=== PATIENT | male | born 1990 | race African-American/Black ===

== ENCOUNTER 2017-05-14 23:39 | Emergency (ER) | payer OTHER ==
[2017-05-14 23:42] VITALS: BP 132/77; PULSE 72; TEMP 97; BMI 23.1
--- NOTE | 2017-05-15 00:43 | PDOC ---
History of Present Illness - General History Source: Patient Exam Limitations: No Limitations - History of Present Illness Initial Comments: 05/15/17 01:37 The patient is a 27 year old male, with a significant past medical history of asthma(childhood), who presents to the emergency department with back pain since yesterday. The patient reports his pain is localized to his lower back and was brought on s/p lifting something heavy that he was going to throw out. Patient reports he did not feel the pain until he was walking back to his apartment. He reports his pain is nonradiating nature and denies any numbness or tingling. Patient reports he has not taken anything for the pain. Patient reports associated shoulder pain, which he reports began 2 weeks ago. He reports he has not taken anything for the pain, but states he has been stretching, with minimal relief of pain. He denies any trauma. He denies any flank pain, dysuria, hematuria, frequency, or urgency. He denies any abdominal pain, nausea, vomiting, diarrhea, or constipation. He denies any chest pain, shortness of breath, diaphoresis, or palpitations. He denies any fever or chills. He denies any recent travel or sick contacts. Allergies: Codeine Past Surgical History: None reported Social History: Non smoker. No ETOH or recreational drug use. <Pradeep Cloud - Last Filed: 05/15/17 01:36> <Lisette Gonzalez - Last Filed: 05/15/17 03:53> - General Chief Complaint: Back Pain Stated Complaint: BACK PAIN Time Seen by Provider: 05/15/17 00:43 Past History <Pradeep Cloud - Last Filed: 05/15/17 01:36> - Past Medical History Asthma: Yes (childhood) - Suicide/Smoking/Psychosocial Hx Smoking History: Never smoked Have you smoked in the past 12 months: No Hx Alcohol Use: No Drug/Substance Use Hx: No Substance Use Type: None <Lisette Gonzalez - Last Filed: 05/15/17 03:53> - Past Medical History Allergies/Adverse Reactions: Allergies Allergy/AdvReac Type Severity Reaction Status Date / Time banana Allergy Verified 05/14/17 23:42 codeine Allergy Hives Verified 05/14/17 23:42 Home Medications: Ambulatory Orders Benzocaine [Orabase] 11.9 gm MM TID #1 paste..g. 06/22/16 Triamcinolone Acetonide [Kenalog-10] 10 mg IJ TID #100 ml 06/22/16 Ibuprofen [Motrin -] 600 mg PO TID #30 tablet 05/15/17 Methocarbamol [Robaxin -] 500 mg PO TID #30 tablet 05/15/17 Review of Systems - Review of Systems Able to Perform ROS?: Yes Comments:: 05/15/17 01:37 GENERAL/CONSTITUTIONAL: No fever or chills. No weakness. HEAD, EYES, EARS, NOSE AND THROAT: No change in vision. No ear pain or discharge. No sore throat. CARDIOVASCULAR: No chest pain or shortness of breath. RESPIRATORY: No cough, wheezing, or hemoptysis. GASTROINTESTINAL: No nausea, vomiting, diarrhea or constipation. GENITOURINARY: No dysuria, frequency, or change in urination. MUSCULOSKELETAL: Yes lower back pain, bilateral shoulder pain. No other joint or muscle swelling or pain. No neck pain. SKIN: No rash NEUROLOGIC: No headache, vertigo, loss of consciousness, or change in strength/ sensation. ENDOCRINE: No increased thirst. No abnormal weight change. HEMATOLOGIC/LYMPHATIC: No anemia, easy bleeding, or history of blood clots. ALLERGIC/IMMUNOLOGIC: No hives or skin allergy. <Pradeep Cloud - Last Filed: 05/15/17 01:36> *Physical Exam - Vital Signs Last Vital Signs Temp Pulse Resp BP Pulse Ox 97 F L 72 18 132/77 99 05/14/17 23:40 05/14/17 23:40 05/14/17 23:40 05/14/17 23:40 05/14/17 23:40 - Physical Exam Comments: 05/15/17 01:38 GENERAL: The patient is awake, alert, and fully oriented, in no acute distress. HEAD: Normal with no signs of trauma. EYES: Pupils equal, round and reactive to light, extraocular movements intact, sclera anicteric, conjunctiva clear with no pallor. ENT: Ears normal, nares patent, oropharynx clear without exudates. Moist mucous membranes. NECK: Normal range of motion, supple without lymphadenopathy, JVD, or masses. LUNGS: Breath sounds equal, clear to auscultation bilaterally. No wheeze/ crackles. HEART: Regular rate and rhythm, normal S1 and S2 without murmur or rub. ABDOMEN: Soft/nontender/nondistended. BS wnl. No guarding or rebound. No palpable masses. No hepatosplenomegaly. EXTREMITIES: Normal range of motion, no edema. No clubbing or cyanosis. No cords, erythema, or tenderness. NEUROLOGICAL: Cranial nerves II through XII grossly intact. Normal speech, normal gait. PSYCH: Normal mood, normal affect. SKIN: Warm, Dry, normal turgor, no rashes or lesions noted. <Pradeep Cloud - Last Filed: 05/15/17 01:36> - Vital Signs Last Vital Signs Temp Pulse Resp BP Pulse Ox 97 F L 72 18 132/77 99 05/14/17 23:40 05/14/17 23:40 05/14/17 23:40 05/14/17 23:40 05/14/17 23:40 <Lisette Gonzalez - Last Filed: 05/15/17 03:53> Medical Decision Making - Medical Decision Making 05/15/17 03:44 Pt comes with back spasm after lifting a heavy fire place. He has no pain running down his legs. He has no neurological deficits. All his pain is in his paraspinal low back msucles. Right worse than left. Muscle spasm is the diagnosis. Pt will go home with motrin and robaxin. He also complains of having had injured his right shoulder in the past. He has likely a sprained or partially torn rotator cuff. Pt will be referred to ortho , so that he may get an MRI in the future. <Lisette Gonzalez - Last Filed: 05/15/17 03:53> *DC/Admit/Observation/Transfer - Attestations Scribe Attestion: 05/15/17 01:38 Documentation prepared by Pradeep Cloud, acting as medical grade shoemaker for Lisette Gonzalez MD. <Pradeep Cloud - Last Filed: 05/15/17 01:36> - Discharge Dispostion Admit: No <Lisette Gonzalez - Last Filed: 05/15/17 03:53> Diagnosis at time of Disposition: Muscle spasm, Musculoskeletal pain, Rotator cuff injury - Discharge Dispostion Disposition: HOME Condition at time of disposition: Stable - Prescriptions Prescriptions: Ibuprofen [Motrin -] 600 mg PO TID #30 tablet Methocarbamol [Robaxin -] 500 mg PO TID #30 tablet - Referrals Referrals: Remi Osorio MD [Staff Physician] - - Patient Instructions Printed Discharge Instructions: DI for Back Spasm
[2017-05-15] MEDS ORDERED: METHOCARBAMOL 500 MG TABLET PO ONE (01:25)
[2017-05-15] MEDS ORDERED: KETOROLAC TROMETHAMINE 60 MG/2 ML VIAL IM ONE (01:25)
[2017-05-15] MEDS ORDERED: KETOROLAC TROMETHAMINE 60 MG/2 ML VIAL ONE (01:50)
[2017-05-15] MEDS ORDERED: METHOCARBAMOL 500 MG TABLET ONE (01:50)
== END 2017-05-15 02:08 | disposition home or self-care (01) ==
LOC: JER 23:39
PROC: 3E0233Z Introduction of Anti-inflammatory into Muscle, Percutaneous Approach (ICD-10-PCS; principal; 2017-05-14)
DX: M54.5 Low back pain (principal); S43.421A Sprain of right rotator cuff capsule, initial encounter; X50.0XXA Overexertion from strenuous movement or load, initial encounter; Y93.89 Activity, other specified; Y92.89 Other specified places as the place of occurrence of the external cause
CPT/HCPCS: 96372; 99283-25

== ENCOUNTER 2017-06-14 23:16 | Emergency (ER) | payer OTHER ==
[2017-06-14 23:38] VITALS: BP 113/67; PULSE 75; TEMP 97.9; BMI 22.4
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
== END 2017-06-15 00:09 | disposition home or self-care (01) ==
LOC: JERFT 23:16
DX: S39.012A Strain of muscle, fascia and tendon of lower back, initial encounter (principal); S13.4XXA Sprain of ligaments of cervical spine, initial encounter; V43.52XA Car driver injured in collision with other type car in traffic accident, initial encounter; Y92.411 Interstate highway as the place of occurrence of the external cause; Y93.89 Activity, other specified; Y99.8 Other external cause status
CPT/HCPCS: 99281-25

== ENCOUNTER 2017-06-30 13:13 | Emergency (ER) | payer OTHER ==
[2017-06-30 13:17] VITALS: BP 154/61; PULSE 61; TEMP 98.1; BMI 22.4
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
[2017-06-30] MEDS ORDERED: IBUPROFEN 600 MG TABLET (FP) PO ONE (14:27)
== END 2017-06-30 16:19 | disposition home or self-care (01) ==
LOC: JERFT 13:13
DX: S80.812A Abrasion, left lower leg, initial encounter (principal); S80.02XA Contusion of left knee, initial encounter; S80.11XA Contusion of right lower leg, initial encounter; W20.8XXA Other cause of strike by thrown, projected or falling object, initial encounter; Y93.89 Activity, other specified; Y92.59 Other trade areas as the place of occurrence of the external cause; Y99.0 Civilian activity done for income or pay
CPT/HCPCS: 73562-TC-LT; 73590-TC-RT; 99281-25

== ENCOUNTER 2017-09-16 23:28 | Emergency (ER) | payer OTHER ==
[2017-09-16 23:46] VITALS: BP 116/66; PULSE 64; TEMP 98; BMI 22.1
--- NOTE | 2017-09-17 00:10 | PDOC ---
History of Present Illness - General History Source: Patient Exam Limitations: No Limitations - History of Present Illness Initial Comments: 09/17/17 00:25 The patient is a 27 year old male, with a significant past medical history of asthma, who presents to the emergency department with diffuse abdominal pain for approximately 1 month. The patient reports his pain began about 1.5 months ago after eating a cold burger and a hot pocket. Patient describes his abdominal pain as crampy in nature. He reports one episode of diarrhea earlier this week and increased flatulence, but denies any nausea, vomiting, or constipation. Patient reports his pain worsened last night s/p eating ice cream. Patient states he believes he is lactose intolerant. He denies any recent fever, chills, cough, headache, or dizziness. He reports increased urinary frequency, buy denies any dysuria, hematuria, or urgency. He denies any recent travel or sick contacts. Allergies: Codeine Past Surgical History: None reported Social History: Non smoker. No ETOH or recreational drug use. <Pradeep Cloud - Last Filed: 09/17/17 00:25> - General History Source: Patient <GorgeAmol aaron - Last Filed: 09/17/17 01:40> - General Chief Complaint: Diarrhea Stated Complaint: DIARRHEA Time Seen by Provider: 09/16/17 23:49 Past History <Pradeep Cloud - Last Filed: 09/17/17 00:25> - Past Medical History Asthma: Yes (childhood) COPD: No - Suicide/Smoking/Psychosocial Hx Smoking History: Never smoked Have you smoked in the past 12 months: No Information on smoking cessation initiated: No Hx Alcohol Use: No Drug/Substance Use Hx: No Substance Use Type: None <Amol Gamble - Last Filed: 09/17/17 01:40> - Past Medical History Allergies/Adverse Reactions: Allergies Allergy/AdvReac Type Severity Reaction Status Date / Time banana Allergy Verified 09/16/17 23:44 codeine Allergy Hives Verified 09/16/17 23:44 Home Medications: Ambulatory Orders NK [No Known Home Medication] 06/14/17 Review of Systems - Review of Systems Able to Perform ROS?: Yes Comments:: 09/17/17 00:25 CONSTITUTIONAL: Absent: fever, no chills, no fatigue EYES: Absent: visual changes ENT: Absent: ear pain, no sore throat CARDIOVASCULAR: Absent: chest pain, no palpitations RESPIRATORY: Absent: cough, no SOB GI: Present: abdominal pain, diarrhea, increased flatulance Absent: no nausea, no vomiting, no constipation GENITOURINARY: Present: frequency Absent: dysuria, no hematuria, no urgency MUSCULOSKELETAL: Absent: back pain, no arthralgia, no myalgia SKIN: Absent: rash NEURO: Absent: headache <Pradeep Cloud - Last Filed: 09/17/17 00:25> *Physical Exam - Vital Signs Last Vital Signs Temp Pulse Resp BP Pulse Ox 98.0 F 64 20 116/66 97 09/16/17 23:44 09/16/17 23:44 09/16/17 23:44 09/16/17 23:44 09/16/17 23:44 - Physical Exam Comments: 09/17/17 00:26 GENERAL: Well-appearing, well-nourished. No apparent distress. HEENT: Normocephalic, atraumatic. PERRL, EOM intact. CARDIOVASCULAR: Normal S1, S2. Regular rate and rhythm. PULMONARY: Clear to auscultation bilaterally. ABDOMEN: Soft, non-distended, non-tender. Normal bowel sounds. No organomegaly. EXTREMITIES: Normal ROM in all four extremities. No gross deformities. SKIN: Warm, dry. No rash NEUROLOGICAL: No focal neurological deficit <Pradeep Cloud - Last Filed: 09/17/17 00:25> - Vital Signs Last Vital Signs Temp Pulse Resp BP Pulse Ox 98.0 F 64 20 116/66 97 09/16/17 23:44 09/16/17 23:44 09/16/17 23:44 09/16/17 23:44 09/16/17 23:44 <Amol Gamble - Last Filed: 09/17/17 01:40> ED Treatment Course - LABORATORY CBC & Chemistry Diagram: 09/17/17 00:30 09/17/17 00:30 <Amol Gamble - Last Filed: 09/17/17 01:40> Medical Decision Making - Medical Decision Making 09/17/17 01:40 Dr. Gamble: The scribe's documentation has been prepared under my direction and personally reviewed by me in its entirery. I confirm that the note above accurately reflects all work, treatment, procedures, and medical decision making performed by me. <Amol Gamble - Last Filed: 09/17/17 01:40> *DC/Admit/Observation/Transfer - Attestations Scribe Attestion: 09/17/17 00:26 Documentation prepared by Pradeep Cloud, acting as remote medical coder for Amol Gamble DO. <Pradeep Cloud - Last Filed: 09/17/17 00:25> - Discharge Dispostion Admit: No <Amol Gamble - Last Filed: 09/17/17 01:40> Diagnosis at time of Disposition: Abdominal pain Qualifiers: Abdominal location: generalized Qualified Code(s): R10.84 - Generalized abdominal pain - Discharge Dispostion Disposition: HOME Condition at time of disposition: Stable - Referrals Referrals: Rajni Benoit MD [Primary Care Provider] - Alethea Muir MD [Staff Physician] - - Patient Instructions Printed Discharge Instructions: DI for Abdominal Pain-Adult Additional Instructions: Please follow up with the doctor referred to you for GI. Don't eat too much diary. avoid excessive greasy fatty foods. - Post Discharge Activity Forms/Work/School Notes: Back to Work
[2017-09-17 00:45] LABS: BASO % 0.7 % (0-2.0); EOS % 1.1 % (0-4.5); LYMPH % 28.8 % (8-40); MCH 29.6 pg (25.7-33.7); MCHC 32.6 g/dl (32.0-35.9); MEAN CELL VOLUME 90.7 fl (80-96); MONO % 9.6 % (3.8-10.2); NEUT % 59.8 % (42.8-82.8); PLATELET COUNT 329 K/MM3 (134-434); RBC 5.07 M/mm3 (4.00-5.60); RDW 13.2 % (11.9-15.9); WHITE BLOOD COUNT 8.4 K/mm3 (4.0-10.0)
[2017-09-17 01:08] LABS: URINE APPEARANCE CLEAR; URINE BILIRUBIN NEGATIVE (NEGATIVE); URINE BLOOD NEGATIVE (NEGATIVE); URINE COLOR LTYELLOW; URINE GLUCOSE (UA) NEGATIVE (NEGATIVE); URINE KETONE NEGATIVE (NEGATIVE); URINE LEUK ESTERASE NEGATIVE (NEGATIVE); URINE NITRITE NEGATIVE (NEGATIVE); URINE PROTEIN NEGATIVE (NEGATIVE)
[2017-09-17 01:15] LABS: ALBUMIN 3.9 g/dl (3.4-5.0); ALK PHOS 70 U/L (45-117); ANION GAP 7 (8-16); BILIRUBIN,TOTAL 0.5 mg/dL (0.2-1.0); BLOOD UREA NITROGEN 18 mg/dL (7-18); CALCIUM 8.1 mg/dL (8.5-10.1); CHLORIDE 107 mmol/L (98-107); CO2 32 mmol/L (21-32); CREATININE 1.1 mg/dL (0.7-1.3); GLUCOSE,RANDOM 67 mg/dL (74-106); LIPASE 110 U/L (73-393); MAGNESIUM 1.9 mg/dL (1.8-2.4); POTASSIUM 4.2 mmol/L (3.5-5.1); SGOT/AST 20 U/L (15-37); SGPT/ALT 26 U/L (12-78); SODIUM 146 mmol/L (136-145); TOT PROT 6.7 g/dl (6.4-8.2)
== END 2017-09-17 01:42 | disposition home or self-care (01) ==
LOC: JER 23:28
DX: R10.84 Generalized abdominal pain (principal)
CPT/HCPCS: 36415; 80053; 81003; 83690; 83735; 85025; 99283-25

== ENCOUNTER 2017-10-27 16:55 | Emergency (ER) | payer OTHER ==
[2017-10-27 17:04] VITALS: BP 141/81; PULSE 80; TEMP 97.8; BMI 21.1
--- NOTE | 2017-10-27 17:07 | PDOC ---
Rapid Medical Evaluation Time Seen by Provider: 10/27/17 17:00 Medical Evaluation: Allergies Allergy/AdvReac Type Severity Reaction Status Date / Time banana Allergy Verified 09/16/17 23:44 codeine Allergy Hives Verified 09/16/17 23:44 I have performed a brief in-person evaluation of this patient. The patient presents with a chief complaint of: cold symptoms x 3 days. Stomach pain x 3 months - wants a cat scan of his stomach. Pertinent physical exam findings: patient is congested. No cough. afebrile. vital signs normal I have ordered the following: nothing The patient will proceed to the ED for further evaluation.
--- NOTE | 2017-10-27 17:28 | PDOC ---
History of Present Illness - General Chief Complaint: Pain, Acute Stated Complaint: COLD SYMPTOMS/ABD PAIN Time Seen by Provider: 10/27/17 17:00 History Source: Patient Exam Limitations: No Limitations - History of Present Illness Initial Comments: 10/27/17 17:54 Patient came for evaluation of an congestion 3 days. Denies fever, but states has had a runny nose, some mild headache pain, took some TheraFlu last night with some moderate resolved. Patient also complaints of persistent abdominal cramping, "bubbling in my stomach", and frequent diarrhea. Denies any bleeding to bowels, denies fever, denies any recent travel or tainted food ingestion. States was seen here a few months ago and laboratory work did not reveal any pathology and no other testing was done. He did not follow-up with [facility] due to his rigid work schedule. Patient is concerned as his pain is persistent. Has taken no medication for resolution of diarrhea, denies fever, denies any bleeding in bowels, states has normal BM but has additional one or 2 episodes of watery stool that are associated with cramping. Denies knowledge that they are associated with food ingestion, has never had a diagnosis of any bowel disease or syndrome. No family member suffers from irritable bowel or any chronic bowel issue. Timing/Duration: reports: changing over time, intermittent Severity: reports: mild Associated Symptoms: reports: fever/chills, nasal congestion. denies: wheezing Past History - Travel Traveled outside of the country in the last 30 days: No Close contact w/someone who was outside of country & ill: No - Past Medical History Allergies/Adverse Reactions: Allergies Allergy/AdvReac Type Severity Reaction Status Date / Time banana Allergy Verified 10/27/17 17:01 codeine Allergy Hives Verified 10/27/17 17:01 Home Medications: Ambulatory Orders Loperamide HCl [Imodium -] 2 mg PO Q8H #21 capsule 10/27/17 Asthma: Yes (childhood) COPD: No - Immunization History Immunization Up to Date: Yes - Suicide/Smoking/Psychosocial Hx Smoking History: Never smoked Have you smoked in the past 12 months: No Hx Alcohol Use: No Drug/Substance Use Hx: No Substance Use Type: None Review of Systems - Review of Systems Able to Perform ROS?: Yes Is the patient limited [place] proficient: Yes Constitutional: Yes: Symptoms Reported, See HPI, Loss of Appetite, Malaise. No : Chills, Fever, Weakness HEENTM: Yes: Symptoms Reported, Nose Congestion Respiratory: Yes: Symptoms reported, See HPI, Cough Musculoskeletal: Yes: Symptoms Reported, See HPI, Joint Pain Integumentary: Yes: Symptoms Reported Neurological: Yes: See HPI. No: Symptoms reported All Other Systems: Reviewed and Negative *Physical Exam - Vital Signs Last Vital Signs Temp Pulse Resp BP Pulse Ox 97.8 F 80 19 141/81 98 10/27/17 17:10/27/17 17:10/27/17 17:10/27/17 17:10/27/17 17:01 - Physical Exam General Appearance: Yes: Nourished, Appropriately Dressed, Mild Distress HEENT: positive: YUAN, Normal ENT Inspection, TMs Normal (congested but landmarks easily visualized), Pharyngeal Erythema, Nasal Congestion, Rhinorrhea (clear drainage) Neck: positive: Trachea midline Respiratory/Chest: positive: Lungs Clear, Normal Breath Sounds. negative: Rhonchi, Wheezing Gastrointestinal/Abdominal: positive: Tender (diffuse but no rebound or guarding , no hepatosplenomegaly), Flat, Increased Bowel Sounds. negative: Normal Bowel Sounds (hyperactive bowel sounds in all quadrants), Distended, Guarding, Rebound Musculoskeletal: positive: Normal Inspection Extremity: positive: Normal Capillary Refill, Normal Inspection, Normal Range of Motion Integumentary: positive: Normal Color, Dry, Warm, Pale Neurologic: positive: vice president process II-XII NML intact, Fully Oriented, Alert, Normal Mood/ Affect Progress Note - Progress Note Progress Note: Common cold symptoms, no evidence of significant pathology or bacterial infection therefore will treat URI symptoms conservatively. Patient with hyperactive bowel sounds had some mild diffuse tenderness in abdomen. Urine analysis negative, no elevation in bili or renal issue. We'll recommend antacids, if not resolved may suggest some Imodium for cramping and diarrhea. Encouraged to increase fluids and important follow-up with [facility] for further evaluation for chronic irritable bowel or other syndromes with chronic diarrhea. *DC/Admit/Observation/Transfer Diagnosis at time of Disposition: Common cold virus Irritable bowel Qualifiers: Irritable bowel syndrome type: with diarrhea Qualified Code(s): K58.0 - Irritable bowel syndrome with diarrhea - Discharge Dispostion Disposition: HOME Condition at time of disposition: Stable Admit: No - Prescriptions Prescriptions: Loperamide HCl [Imodium -] 2 mg PO Q8H #21 capsule - Referrals Referrals: Navin Mcintyre MD [Staff Physician] - - Patient Instructions Printed Discharge Instructions: DI for Diarrhea and Traveler's Diarrhea -- Adult Additional Instructions: Rest, drink lots of fluids: Teas, water, soups, Pedialyte Saltwater gargles Steamy showers/seem to face break up mucus Avoid contact with others until fevers and cough resolved Lots of handwashing and good hygiene Continue [id number] medications for symptomatic relief Tylenol or Motrin for fever and pain Avoid all milk and milk products/avoid lactose May tried Lactaid tablets if known ingestion of milk or cream products to avoid stomach upset May try Imodium for diarrhea Followup with private physician in one to 2 days as needed Call and make appointment with [facility] for thorough evaluation of chronic stomach and diarrhea problems Return to emergency department for worsened symptoms, fevers, dehydration - Post Discharge Activity Forms/Work/School Notes: Back to Work
[2017-10-27 18:01] LABS: URINE APPEARANCE CLEAR; URINE BILIRUBIN NEGATIVE (<2.0 mg/dL); URINE BLOOD NEGATIVE (NEGATIVE); URINE COLOR YELLOW; URINE GLUCOSE (UA) NEGATIVE (NEGATIVE); URINE KETONE NEGATIVE (NEGATIVE); URINE LEUK ESTERASE NEGATIVE (NEGATIVE); URINE NITRITE NEGATIVE (NEGATIVE); URINE PROTEIN NEGATIVE (NEGATIVE); URINE UROBILINOGEN NEGATIVE mg/dL (0.2-1.0)
== END 2017-10-27 18:33 | disposition home or self-care (01) ==
LOC: JERFT 16:55 → JER 16:55 → JERFT 18:33
DX: J00 Acute nasopharyngitis [common cold] (principal)
CPT/HCPCS: 81003; 99281-25

== ENCOUNTER 2017-11-17 19:31 | Emergency (ER) | payer OTHER ==
--- NOTE | 2017-11-17 19:36 | PDOC ---
Rapid Medical Evaluation Time Seen by Provider: 11/17/17 19:35 Medical Evaluation: Allergies Allergy/AdvReac Type Severity Reaction Status Date / Time banana Allergy Verified 10/27/17 17:01 codeine Allergy Hives Verified 10/27/17 17:01 11/17/17 19:35 I have performed a brief in-person evaluation of this patient. The patient presents with a chief complaint of: abdominal pain, "i noticed tapeworms today", "i've lost weight", diarrhea x 3 months, denies vomiting Pertinent physical exam findings: well appearing I have ordered the following: stool cx The patient will proceed to the ED for further evaluation. Discharge Disposition - Diagnosis Diarrhea - Referrals - Patient Instructions - Post Discharge Activity
[2017-11-17 19:47] VITALS: BMI 21.7
[2017-11-17 20:12] LABS: BASO % 0.5 % (0-2.0); HEMATOCRIT 44.7 % (35.4-49); HEMOGLOBIN 15.2 GM/dL (11.7-16.9); MCH 30.1 pg (25.7-33.7); MCHC 34.1 g/dl (32.0-35.9); MEAN CELL VOLUME 88.2 fl (80-96); MEAN PLT VOLUME 7.7 fl (7.5-11.1); MONO % 19.9 % (3.8-10.2); NEUT % 52.6 % (42.8-82.8); PLATELET COUNT 316 K/MM3 (134-434); RBC 5.07 M/mm3 (4.00-5.60)
--- NOTE | 2017-11-17 20:17 | PDOC ---
*Physical Exam - Vital Signs Last Vital Signs Temp Pulse Resp BP Pulse Ox 98.3 F 75 20 118/87 95 11/17/17 19:43 11/17/17 19:43 11/17/17 19:43 11/17/17 19:43 11/17/17 19:43 ED Treatment Course - LABORATORY CBC & Chemistry Diagram: 11/17/17 20:06 11/17/17 20:05 *DC/Admit/Observation/Transfer Diagnosis at time of Disposition: Diarrhea - Referrals - Patient Instructions - Post Discharge Activity
--- NOTE | 2017-11-17 20:22 | PDOC ---
History of Present Illness - General Chief Complaint: Pain Stated Complaint: STOMACH PAIN Time Seen by Provider: 11/17/17 19:35 History Source: Patient - History of Present Illness Initial Comments: 11/17/17 20:42 27 year old male with generalized abdominal discomfort, " bloating", and passed a worm with BM. patient reports diarrhea on and off x 3 months. now with soft stool. denies NVD, fever/ chills, headache. 11/17/17 20:45 Past History - Past Medical History Allergies/Adverse Reactions: Allergies Allergy/AdvReac Type Severity Reaction Status Date / Time banana Allergy Verified 10/27/17 17:01 codeine Allergy Hives Verified 10/27/17 17:01 Home Medications: Ambulatory Orders Albendazole [ALBENZA -] 400 mg PO DAILY #6 tablet 11/17/17 Asthma: Yes (childhood) COPD: No - Immunization History Immunization Up to Date: Yes - Suicide/Smoking/Psychosocial Hx Smoking History: Never smoked Have you smoked in the past 12 months: No Hx Alcohol Use: No Drug/Substance Use Hx: No Substance Use Type: None Review of Systems - Review of Systems Able to Perform ROS?: Yes Is the patient limited [place] proficient: No Constitutional: No: Symptoms Reported, See HPI, Chills, Diaphoresis, Fever, Loss of Appetite, Malaise, Night Sweats, Weakness, Weight Stable, Unintentional Wgt. Loss, Unexplained wgt Loss, Other : No: Symptoms Reported, See HPI, Burning, Dysuria, Discharge, Frequency, Flank Pain, Hematuria, Incontinence, Pain, Urgency, Testicular Mass, Testicular Swelling, Lesions, Testicular Pain, Other *Physical Exam - Vital Signs Last Vital Signs Temp Pulse Resp BP Pulse Ox 98.3 F 75 20 118/87 95 11/17/17 19:43 11/17/17 19:43 11/17/17 19:43 11/17/17 19:43 11/17/17 19:43 - Physical Exam General Appearance: Yes: Appropriately Dressed Respiratory/Chest: positive: Lungs Clear, Normal Breath Sounds Gastrointestinal/Abdominal: positive: Normal Bowel Sounds, Soft. negative: Tender Musculoskeletal: positive: Normal Inspection Extremity: positive: Normal Capillary Refill, Normal Inspection ED Treatment Course - LABORATORY CBC & Chemistry Diagram: 11/17/17 20:06 11/17/17 20:05 Progress Note - Progress Note Progress Note: A: worm in stool P: albendazole GI follow up *DC/Admit/Observation/Transfer Diagnosis at time of Disposition: Worms in stool - Discharge Dispostion Disposition: HOME - Prescriptions Prescriptions: Albendazole [ALBENZA -] 400 mg PO DAILY #6 tablet - Referrals Referrals: Luis Bell MD [Staff Physician] - Call tomorrow - Patient Instructions Printed Discharge Instructions: Ascariasis Additional Instructions: wash hands thoroughly before eating. take albendazole as prescribed. - Post Discharge Activity
[2017-11-17 20:35] LABS: ANION GAP 3 (8-16); BLOOD UREA NITROGEN 18 mg/dL (7-18); CALCIUM 8.7 mg/dL (8.5-10.1); CHLORIDE 105 mmol/L (98-107); CO2 30 mmol/L (21-32); GLUCOSE,RANDOM 88 mg/dL (74-106); POTASSIUM 4.1 mmol/L (3.5-5.1); SGOT/AST 24 U/L (15-37); SGPT/ALT 24 U/L (12-78); SODIUM 138 mmol/L (136-145)
[2017-11-17 20:38] LABS: ALK PHOS 78 U/L (45-117); BILIRUBIN,TOTAL 0.6 mg/dL (0.2-1.0); TOT PROT 7.1 g/dl (6.4-8.2)
[2017-11-17 21:50] VITALS: BP 120/82; PULSE 70; TEMP 98.2
== END 2017-11-17 21:51 | disposition home or self-care (01) ==
LOC: JER 19:31
DX: B83.9 Helminthiasis, unspecified (principal); Z87.09 Personal history of other diseases of the respiratory system
CPT/HCPCS: 36415; 80053; 85025; 87177; 87209; 99282-25

== ENCOUNTER 2018-11-14 20:47 | Emergency (ER) | payer OTHER ==
[2018-11-14 20:53] VITALS: BP 130/86; PULSE 86; TEMP 98.3; BMI 23.1
--- NOTE | 2018-11-14 21:00 | PDOC ---
Rapid Medical Evaluation Time Seen by Provider: 11/14/18 20:51 Medical Evaluation: Allergies Allergy/AdvReac Type Severity Reaction Status Date / Time banana Allergy Verified 10/27/17 17:01 codeine Allergy Hives Verified 10/27/17 17:01 11/14/18 21:00 I have performed a brief in-person evaluation of this patient. The patient presents with a chief complaint of: L facial/R hand injury s/p fall tonight. No LOC Pertinent physical exam findings:Stable w/ sig swelling over L maxillary area and deformity to dorsum of R hand, I have ordered the following:CT facial bones and XR R hand/wrist The patient will proceed to the ED for further evaluation. Discharge Disposition - Diagnosis Facial swelling Hand injury Qualifiers: Encounter type: initial encounter Laterality: right Qualified Code(s): S69.91XA - Unspecified injury of right wrist, hand and finger(s), initial encounter - Referrals - Patient Instructions - Post Discharge Activity
--- NOTE | 2018-11-14 22:15 | PDOC ---
History of Present Illness - General Chief Complaint: Injury Stated Complaint: RT HAND INJURY Time Seen by Provider: 11/14/18 20:51 - History of Present Illness Initial Comments: 11/14/18 22:11 28-year-old male without comorbidities presents for evaluation of right hand pain and left sided facial pain after fall off a ladder. No loss of consciousness, post injury nausea vomiting or visual changes. Past History - Past Medical History Allergies/Adverse Reactions: Allergies Allergy/AdvReac Type Severity Reaction Status Date / Time banana Allergy Verified 11/14/18 21:07 codeine Allergy Hives Verified 11/14/18 21:07 Home Medications: Ambulatory Orders NK [No Known Home Medication] 11/14/18 Asthma: Yes (childhood) COPD: No - Immunization History Immunization Up to Date: Yes - Suicide/Smoking/Psychosocial Hx Smoking History: Never smoked Have you smoked in the past 12 months: No Hx Alcohol Use: No Drug/Substance Use Hx: No Substance Use Type: None Review of Systems - Review of Systems HEENTM: No: Recent change in vision ABD/GI: No: Nausea, Vomiting Musculoskeletal: Yes: Joint Pain Neurological: No: Headache *Physical Exam - Vital Signs Last Vital Signs Temp Pulse Resp BP Pulse Ox 98.3 F 86 18 130/86 98 11/14/18 20:50 11/14/18 20:50 11/14/18 20:50 11/14/18 20:50 11/14/18 20:50 - Physical Exam Comments: 11/14/18 22:12 HEAD: NC there is a left-sided periorbital hematoma EYES: Conjuntiva clear Ears: Canals and TM's normal NOSE: No d/c THROAT: Moist mucous membrances, oral pharanx clear, uvula midline NECK: Supple without adenopathy CARDIAC: S1 S2 LUNGS: CTA Full and Equal breath sounds ABDOMEN: Soft NT ND MS: Full ROM in all joints without edema NEUROLOGIC: No gross sensory or motor deficits, NVID SKIN: Normal color and temperature no lesions or rashes Right hand skin color and temperature are normal. There is a deformity at the carpometacarpal joints. No gross sensory or motor deficits. ED Treatment Course - RADIOLOGY Radiology Studies Ordered: Category Date Time Status HAND- RIGHT [RAD] Stat Radiology 11/14/18 22:09 Ordered Medical Decision Making - Medical Decision Making 11/14/18 22:13 X-ray's of the right hand show a fracture of the third and fourth carpometacarpal joint. This fracture was gently reduced with traction and countertraction patient was reexamined. He makes a full fist without malrotation. The patient was placed in a volar splint encompassing the hand up to the PIPJ's he was neurovascularly intact post-with application. 11/14/18 22:14 Post reduction x-rays show adequate reduction of the MCCJ's *DC/Admit/Observation/Transfer Diagnosis at time of Disposition: Facial swelling, Dislocation of hand joint Hand injury Qualifiers: Encounter type: initial encounter Laterality: right Qualified Code(s): S69.91XA - Unspecified injury of right wrist, hand and finger(s), initial encounter - Discharge Dispostion Disposition: HOME Condition at time of disposition: Improved Decision to Admit order: No - Referrals Referrals: Rajni Benoit MD [Primary Care Provider] - Timo Ordoñez DO [Staff Physician] - - Patient Instructions Additional Instructions: Please keep the splint in place until seen by orthopedic surgery. Return to the emergency room for worsening symptoms. Tylenol and Motrin as directed for pain. Please keep the splint clean and dry. - Post Discharge Activity
== END 2018-11-15 14:21 | disposition home or self-care (01) ==
LOC: JERFT 20:47
PROC: 2W3CX1Z Immobilization of Right Lower Arm using Splint (ICD-10-PCS; principal; 2018-11-14)
PROC: 0RSSXZZ Reposition Right Carpometacarpal Joint, External Approach (ICD-10-PCS; 2018-11-14)
DX: S63.054A Dislocation of other carpometacarpal joint of right hand, initial encounter (principal); S05.12XA Contusion of eyeball and orbital tissues, left eye, initial encounter; W11.XXXA Fall on and from ladder, initial encounter; Y93.89 Activity, other specified; Y92.89 Other specified places as the place of occurrence of the external cause; Y99.8 Other external cause status
CPT/HCPCS: 26670; 29125; 70486-TC; 73110-TC-RT-FY; 73130-TC-RT-FY; 99281-25

== ENCOUNTER 2018-11-27 22:26 | Emergency (ER) | payer OTHER ==
[2018-11-27 22:39] VITALS: BP 112/79; PULSE 75; TEMP 97.7; BMI 23.1
--- NOTE | 2018-11-27 22:47 | PDOC ---
History of Present Illness - General Chief Complaint: Revisit,Wound Recheck Stated Complaint: HAND INJURY Time Seen by Provider: 11/27/18 22:42 - History of Present Illness Initial Comments: 11/27/18 22:45 28-year-old male returns to the emergency room after carpal metacarpal dislocation because the referral Past History - Past Medical History Allergies/Adverse Reactions: Allergies Allergy/AdvReac Type Severity Reaction Status Date / Time banana Allergy Verified 11/14/18 21:07 codeine Allergy Hives Verified 11/14/18 21:07 Home Medications: Ambulatory Orders NK [No Known Home Medication] 11/14/18 Asthma: Yes (childhood) COPD: No - Immunization History Immunization Up to Date: Yes - Suicide/Smoking/Psychosocial Hx Smoking History: Never smoked Have you smoked in the past 12 months: No Information on smoking cessation initiated: No Hx Alcohol Use: No Drug/Substance Use Hx: No Substance Use Type: None Review of Systems - Review of Systems Musculoskeletal: Yes: See HPI *Physical Exam - Vital Signs Last Vital Signs Temp Pulse Resp BP Pulse Ox 97.7 F 75 20 112/79 100 11/27/18 22:34 11/27/18 22:34 11/27/18 22:34 11/27/18 22:34 11/27/18 22:34 - Physical Exam Comments: 11/27/18 22:45 R hand splint in place no gross sensorimotor deficits Medical Decision Making - Medical Decision Making 11/27/18 22:45 Pt given a list of local hand and ortho doctors *DC/Admit/Observation/Transfer Diagnosis at time of Disposition: Dislocation of hand joint - Discharge Dispostion Disposition: HOME Condition at time of disposition: Stable Decision to Admit order: No - Referrals Referrals: Rajni Benoit MD [Primary Care Provider] - Willie Colorado MD [Staff Physician] - Timo Ordoñez DO [Staff Physician] - - Patient Instructions - Post Discharge Activity Forms/Work/School Notes: Back to Work
== END 2018-11-27 22:50 | disposition home or self-care (01) ==
LOC: JERFT 22:26
DX: Z47.89 Encounter for other orthopedic aftercare (principal); S63.054D Dislocation of other carpometacarpal joint of right hand, subsequent encounter; W11.XXXD Fall on and from ladder, subsequent encounter
CPT/HCPCS: 99281-25

== ENCOUNTER 2019-02-01 21:51 | Emergency (ER) | payer OTHER ==
[2019-02-01 22:01] VITALS: BP 102/49; PULSE 65; TEMP 98; BMI 23.5
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
== END 2019-02-01 22:20 | disposition home or self-care (01) ==
LOC: JERFT 21:51
DX: F10.920 Alcohol use, unspecified with intoxication, uncomplicated (principal); F14.10 Cocaine abuse, uncomplicated; R01.1 Cardiac murmur, unspecified; F12.90 Cannabis use, unspecified, uncomplicated; F17.210 Nicotine dependence, cigarettes, uncomplicated
CPT/HCPCS: 99281-25

== ENCOUNTER 2019-03-19 21:44 | Emergency (ER) | payer OTHER ==
[2019-03-19 22:13] VITALS: BP 128/65; PULSE 68; TEMP 97.9; BMI 23.7
--- NOTE | 2019-03-19 22:41 | PDOC ---
History of Present Illness - General Chief Complaint: Nausea/Vomiting Stated Complaint: NAUSEAVOMINTING Time Seen by Provider: 03/19/19 22:38 - History of Present Illness Initial Comments: 03/19/19 22:57 28y/o M no significant pmhx presenting today with 1 day of abdominal pain, nausea and vomiting. He started having throbbing diffuse abdominal pain a few hours after eating burgers at a cookout at around 2 a.m. He has had accompanying nausea and vomiting through out the rest of the day. Non-bloody emesis x 8. Other contacts who ate the same food have complained of abdominal pain as well. His last bowel movement was this afternoon around 4pm and he is unable to characterize it.He uses marijuana, but his last use was 4 days ago. He denies any dysuria, hematuria or frequency. 03/19/19 23:29 Past History - Past Medical History Allergies/Adverse Reactions: Allergies Allergy/AdvReac Type Severity Reaction Status Date / Time banana Allergy Verified 03/19/19 22:08 codeine Allergy Hives Verified 03/19/19 22:08 Home Medications: Ambulatory Orders NK [No Known Home Medication] 11/14/18 Asthma: Yes (childhood) COPD: No - Immunization History Immunization Up to Date: Yes - Suicide/Smoking/Psychosocial Hx Smoking History: Unknown if ever smoked Have you smoked in the past 12 months: No Hx Alcohol Use: Yes Drug/Substance Use Hx: No Substance Use Type: None Review of Systems - Review of Systems Constitutional: Yes: Chills. No: Fever HEENTM: No: Eye Pain, Blurred Vision Respiratory: No: Cough, Shortness of Breath Cardiac (ROS): No: Chest Pain ABD/GI: Yes: Symptoms Reported : No: Burning, Dysuria Musculoskeletal: No: Back Pain Integumentary: No: Change in Color, Rash Neurological: Yes: Headache *Physical Exam - Vital Signs Last Vital Signs Temp Pulse Resp BP Pulse Ox 97.9 F 68 18 128/65 100 03/19/19 22:10 03/19/19 22:10 03/19/19 22:10 03/19/19 22:10 03/19/19 22:10 - Physical Exam General Appearance: Yes: Appropriately Dressed, Mild Distress HEENT: positive: EOMI, Normal Voice. negative: Scleral Icterus (R), Scleral Icterus (L) Neck: positive: Trachea midline, Supple Respiratory/Chest: positive: Lungs Clear, Normal Breath Sounds. negative: Chest Tender, Respiratory Distress, Accessory Muscle Use Cardiovascular: positive: Regular Rhythm, Regular Rate, S1, S2. negative: Edema , JVD Vascular Pulses: Dorsalis-Pedis (R): 2+, Doralis-Pedis (L): 2+ Gastrointestinal/Abdominal: positive: Soft, Guarding, Tenderness, Other ( diffusely) Musculoskeletal: positive: Normal Inspection. negative: CVA Tenderness Extremity: positive: Normal Capillary Refill, Normal Inspection, Normal Range of Motion Integumentary: positive: Normal Color, Dry, Warm Neurologic: positive: Fully Oriented, Alert, Normal Mood/Affect, Normal Response Medical Decision Making - Medical Decision Making 03/19/19 23:32 28y/o M no significant pmhx presenting today with 1 day of abdominal pain, nausea and vomiting Labs/Imaging/Meds Meds: Iv tylenol 1000mg, zofran 4mg IV, IV normal saline 1000mg. per nursing inquiry, admits to drinking alcohol ([place]) 03/19/19 23:53 *DC/Admit/Observation/Transfer Diagnosis at time of Disposition: Nausea & vomiting Qualifiers: Vomiting type: unspecified Vomiting Intractability: non-intractable Qualified Code(s): R11.2 - Nausea with vomiting, unspecified - Discharge Dispostion Disposition: HOME Decision to Admit order: No - Referrals - Patient Instructions Printed Discharge Instructions: True or False: You Can Cure a Hangover, DI for Nausea -- Adult, DI for Vomiting -- Adult Additional Instructions: You were seen in the ER for abdominal pain, nausea and vomiting. You were given medications for nausea, pain and IV fluids to keep you hydrated. RETURN TO THE EMERGENCY DEPARTMENT: immediately should you feel worse in any way or have any of the following symptoms: increasing or different abdominal pain, persistent vomiting, fevers or shaking chills. Please return to the emergency department for a recheck in 8-12 hours if the pain is persistent or worse so we can re-evaluate you and ensure that you are not developing a problem that would require surgery or hospitalization. - Post Discharge Activity
[2019-03-19] MEDS ORDERED: ONDANSETRON 4 MG/2 ML VIAL IVPUSH ONE (22:55)
[2019-03-19] MEDS ORDERED: ACETAMINOPHEN 1000 MG/100 ML VIAL (NON FORMULARY) IVPB ONE (22:55)
[2019-03-19] MEDS ORDERED: SODIUM CHLORIDE 1,000 ML IV STA (22:55)
[2019-03-19] MEDS ORDERED: ONDANSETRON 4 MG/2 ML VIAL ONE (23:13)
[2019-03-19] MEDS ORDERED: ACETAMINOPHEN INJECTION 100 ML IVPB ONE (23:13)
--- NOTE | 2019-03-20 00:07 | PDOC ---
*Physical Exam - Vital Signs Last Vital Signs Temp Pulse Resp BP Pulse Ox 97.9 F 68 18 128/65 100 03/19/19 22:10 03/19/19 22:10 03/19/19 22:10 03/19/19 22:10 03/19/19 22:10 - Physical Exam Comments: 03/20/19 00:04 Sign out received by Dr. Vieyra. 28 y/o M with no PMH p/w one day of N/V/abdominal pain with 8x non-bloody vomiting today after eating burgers/large meal/elcohol. Diffuse abdominal tenderness and guarding, stable vitals. Already received 1L NS, IV tylenol, Zofran. Plan: - Additional fluid bolus - Re-assess - po challenge - Likely discharge home <Anderson Reyes - Last Filed: 03/20/19 00:04> - Vital Signs Last Vital Signs Temp Pulse Resp BP Pulse Ox 97.9 F 68 18 128/65 100 03/19/19 22:10 03/19/19 22:10 03/19/19 22:10 03/19/19 22:10 03/19/19 22:10 <Lisette Gonzalez - Last Filed: 03/20/19 00:13> ED Treatment Course - Medications Given in the ED: ED Medications Discontinued Medications Generic Name Dose Route Start Last Admin Trade Name Freq PRN Reason Stop Dose Admin Acetaminophen 1,000 mg 03/19/19 22:55 03/19/19 23:37 Ofirmev Injection - IVPB 03/19/19 22:56 1,000 mg ONCE ONE Administration Sodium Chloride 1,000 mls @ 1,000 mls/hr 03/19/19 22:55 03/19/19 23:35 Normal Saline - IV 03/19/19 23:54 1,000 mls/hr ASDIR STA Administration Ondansetron HCl 4 mg 03/19/19 22:55 03/19/19 23:38 Zofran Injection IVPUSH 03/19/19 22:56 4 mg ONCE ONE Administration <Anderson Reyes - Last Filed: 03/20/19 00:04> - Medications Given in the ED: ED Medications Discontinued Medications Generic Name Dose Route Start Last Admin Trade Name Freq PRN Reason Stop Dose Admin Acetaminophen 1,000 mg 03/19/19 22:55 03/19/19 23:37 Ofirmev Injection - IVPB 03/19/19 22:56 1,000 mg ONCE ONE Administration Sodium Chloride 1,000 mls @ 1,000 mls/hr 03/19/19 22:55 03/19/19 23:35 Normal Saline - IV 03/19/19 23:54 1,000 mls/hr ASDIR STA Administration Ondansetron HCl 4 mg 03/19/19 22:55 03/19/19 23:38 Zofran Injection IVPUSH 03/19/19 22:56 4 mg ONCE ONE Administration <Lisette Gonzalez - Last Filed: 03/20/19 00:13> *DC/Admit/Observation/Transfer <Anderson Reyes - Last Filed: 03/20/19 00:04> - Discharge Dispostion Decision to Admit order: No <Lisette Gonzalez - Last Filed: 03/20/19 00:13> Diagnosis at time of Disposition: Food poisoning Nausea & vomiting Qualifiers: Vomiting type: unspecified Vomiting Intractability: non-intractable Qualified Code(s): R11.2 - Nausea with vomiting, unspecified - Discharge Dispostion Disposition: HOME Condition at time of disposition: Improved - Referrals Referrals: Rajni Benoit MD [Primary Care Provider] - - Patient Instructions Printed Discharge Instructions: True or False: You Can Cure a Hangover, DI for Nausea -- Adult, DI for Vomiting -- Adult Additional Instructions: You were seen in the ER for abdominal pain, nausea and vomiting. You were given medications for nausea, pain and IV fluids to keep you hydrated. RETURN TO THE EMERGENCY DEPARTMENT: immediately should you feel worse in any way or have any of the following symptoms: increasing or different abdominal pain, persistent vomiting, fevers or shaking chills. Please return to the emergency department for a recheck in 8-12 hours if the pain is persistent or worse so we can re-evaluate you and ensure that you are not developing a problem that would require surgery or hospitalization. - Post Discharge Activity Forms/Work/School Notes: Back to Work
--- NOTE | 2019-03-20 00:17 | PDOC ---
Documentation entered by Sarah Hayes SCRIBE, acting as scribe for Lisette Gonzalez MD. Lisette Gonzalez MD: This documentation has been prepared by the crystaleFreddy Lincy, SCRIBE, under my direction and personally reviewed by me in its entirety. I confirm that the documentation accurately reflects all work, treatment, procedures, and medical decision making performed by me. Attending Attestation - Resident Resident Name: Will Vieyra - ED Attending Attestation I have performed the following: I have examined & evaluated the patient, The case was reviewed & discussed with the resident, I agree w/resident's findings & plan - HPI HPI: 03/19/19 23:08 The patient is a 28-year-old male with no reported past medical history presents to the emergency department with nausea and vomiting. The patient reports [facility], and reports multiple people who attended [facility] had GI symptoms. Denies fever or chills. - Physicial Exam PE: 03/20/19 00:14 Agree with resident exam. Pt has diffuse abd pain but no rebound and no guarding and no flank pain, and pt has no fever. Rest of exam normal. Pt is neurologically intact. - Medical Decision Making 03/20/19 00:16 Pt given hydration and ofirmev and he is feeling better. He will be discharged and he is stable to go home. pt understands that he needs to return for worsening abd pain or for fever or worse vomiting.
== END 2019-03-20 01:42 | disposition home or self-care (01) ==
LOC: JER 21:44
PROC: 3E033GC Introduction of Other Therapeutic Substance into Peripheral Vein, Percutaneous Approach (ICD-10-PCS; principal; 2019-03-19)
PROC: 3E033NZ Introduction of Analgesics, Hypnotics, Sedatives into Peripheral Vein, Percutaneous Approach (ICD-10-PCS; 2019-03-19)
PROC: 3E0337Z Introduction of Electrolytic and Water Balance Substance into Peripheral Vein, Percutaneous Approach (ICD-10-PCS; 2019-03-19)
DX: R11.2 Nausea with vomiting, unspecified (principal)
CPT/HCPCS: 96361; 96374; 96375; 99282-25; J0131; J7030

== ENCOUNTER 2019-03-20 20:14 | Emergency (ER) | payer OTHER ==
[2019-03-20] MEDS ORDERED: ONDANSETRON *ODT* 4 MG TABLET SL ONE (20:19)
[2019-03-20 20:21] VITALS: BP 134/70; PULSE 63; TEMP 98.2; BMI 23.1
--- NOTE | 2019-03-20 20:22 | PDOC ---
Rapid Medical Evaluation Chief Complaint: Pain Time Seen by Provider: 03/20/19 20:18 Medical Evaluation: Allergies Allergy/AdvReac Type Severity Reaction Status Date / Time banana Allergy Verified 03/20/19 20:18 codeine Allergy Hives Verified 03/20/19 20:18 03/20/19 20:19 This patient had a brief in-person evaluation in triage cc: vomiting since yesterday after eating at a bbq seen yesterday treated and released, states he is still vomiting today. Denies constipation or diarrhea HPI: NAD even and unlabored breathing generalize abdominal tenderness orders: antiemetic This patient will proceed to ED for further evaluation. Discharge Disposition - Diagnosis Vomiting - Referrals - Patient Instructions - Post Discharge Activity
[2019-03-20] MEDS ORDERED: SODIUM CHLORIDE 1,000 ML IV STA (20:48)
[2019-03-20] MEDS ORDERED: FAMOTIDINE 20 MG/50 ML IVPB 20 MG/50 ML MG IVPB ONE ×2 (20:48→21:27)
[2019-03-20] MEDS ORDERED: ONDANSETRON 4 MG/2 ML VIAL IVPUSH ONE (20:58)
[2019-03-20] MEDS ORDERED: ACETAMINOPHEN 1000 MG/100 ML VIAL (NON FORMULARY) IVPB ONE (20:59)
--- NOTE | 2019-03-20 21:22 | PDOC ---
Documentation entered by Maycol Sorensen SCRIBE, acting as scribe for Yaneth Blevins MD. Yaneth Blevins MD: This documentation has been prepared by the Franchesca benavides Xhesika, SCRIBE, under my direction and personally reviewed by me in its entirety. I confirm that the documentation accurately reflects all work, treatment, procedures, and medical decision making performed by me. History of Present Illness - General Chief Complaint: Pain Stated Complaint: VOMITTING/HEADACHE/ABD/PAIN Time Seen by Provider: 03/20/19 20:18 History Source: Patient Exam Limitations: No Limitations - History of Present Illness Initial Comments: 03/20/19 21:05 The patient is a 28 year old male with no significant past medical history who presents to the ED with persistent nausea and vomiting since yesterday. Patient was seen here in the ED yesterday for nausea and vomiting, was given tylenol and zofran and was discharged home with mild relief of symptoms. The patient reports he was at a [employer] yesterday, ate burgers, chicken, and drank 1 bottle of alcohol, however, patient reports multiple people who attended [facility] had mild GI symptoms but had improved. Patient notes he endorsed 5 episodes of [place] mixed with food material emesis (last episodes 30 min ago ), headache, general abdominal pain and sweats today. Patient notes he has been drinking Gatorade and ate crackers and soup but could not keep it down. Denies fever, chest pain, SOB, palpitations, dizziness, weakness, D, bladder and bowel problems, leg swelling, No sick contacts or travel. No new changes in medications. Allergies: banana, codeine Social history: Lives with family. occasional alcohol use. occasional marijuana use. Meds: as documented in EMR 03/20/19 21:17 Past History - Past Medical History Allergies/Adverse Reactions: Allergies Allergy/AdvReac Type Severity Reaction Status Date / Time banana Allergy Verified 03/20/19 20:18 codeine Allergy Hives Verified 03/20/19 20:18 Home Medications: Ambulatory Orders Ondansetron [Zofran -] 4 mg PO TID PRN #9 tablet 03/20/19 Asthma: Yes (childhood) COPD: No - Immunization History Immunization Up to Date: Yes - Suicide/Smoking/Psychosocial Hx Smoking History: Current some day smoker Have you smoked in the past 12 months: No Information on smoking cessation initiated: No Hx Alcohol Use: No Drug/Substance Use Hx: Yes (marijuana) Substance Use Type: None Review of Systems - Review of Systems Able to Perform ROS?: Yes Comments:: 03/20/19 21:04 Review of systems Constitutional: no fevers. No weakness. (+) chills, sweats HEENT: (+) headache. no dizziness. No congestion. CVS: no cp or syncope. Resp: no sob. No cough. Gastrointestinal: (+) abdominal pain, nausea or vomiting. no diarrhea, no constipation. Genitourinary: no urinary sx, hematuria. MUSCULOSKELETAL: No joint pain and swelling. No neck or back pain. SKIN: no redness or skin changes, no discharge, no rash. No wounds. Hematologic: no easy bruising/bleeding. NEUROLOGIC: (+) headache. No dizziness, LOC or altered mental status. No weakness, numbness or tingling. Psych: no anxiety or depression Allergic/Immunologic: med/food allergies All other systems reviewed and negative, or as documented in HPI. 03/20/19 21:18 *Physical Exam - Vital Signs Last Vital Signs Temp Pulse Resp BP Pulse Ox 98.2 F 63 13 134/70 100 03/20/19 20:18 03/20/19 20:18 03/20/19 20:18 03/20/19 20:18 03/20/19 20:18 - Physical Exam Comments: 03/20/19 21:05 General: Well appearing, awake and alert, NAD. HEENT: NCAT, PERRL, EOMI, clear conjunctiva, anicteric, dry mucus membranes, clear oropharynx, no oral lesions.. Neck: neck supple, FROM Resp: CTAB, normal and even respirations, no respiratory distress CVS: RRR, no murmurs, 2+ peripheral pulses throughout, no peripheral edema Abdomen: (+) Diffuse abdominal tenderness. soft, nondistended, no rebound or guarding. No CVAT. neg mcburney's and neg peres's sign. Back: nontender, normal inspection and ROM MSK: no edema, VARMA x4, ROM intact. No clubbing or cyanosis. normal bulk and tone. Extremities: no calf tenderness Neuro: alert Psych: Calm and cooperative Skin: warm and well perfused, cap refill <2 sec, normal color, 03/20/19 21:20 03/20/19 22:25 ED Treatment Course - LABORATORY CBC & Chemistry Diagram: 03/20/19 21:42 03/20/19 21:25 Medical Decision Making - Medical Decision Making 03/20/19 21:20 See HPI for details. Prior notes reviewed, including admissions, discharges and consultations. Vital signs reviewed, wnl. Vital Signs Temp Pulse Resp BP Pulse Ox 98.2 F 63 13 134/70 100 03/20/19 20:18 03/20/19 20:18 03/20/19 20:18 03/20/19 20:18 03/20/19 20:18 DDX pancreatitis, hepatitis, gastroenteritis, enteritis, food poisoning, dehydration, electrolyte/metabolic derangements. laboratory results and imaging reviewed, basic labs and lytes wnl, notable for mild elevation of Lipase to 400s, but not >3X upper limit of normal. LFTs wnl ED course - GI cocktail, tylenol, zofran, IVF pepcid and reassess 03/20/19 23:02 - on reassessment, abdomen soft, pain improved, no peritoneal findings. low suspicion for acute pathology or sig pancreatitis, with only mildly elevated values. terri PO given juice and crackers here, bland diet and adv as tolerated with appropriate bowel rest sx most likely enteritis from virus/food trigger given recent food exposures and other similar sick contacts, but pt admits to eating "alot" at the [facility]. no meds rx'd for nausea vomiting yesterday, so will provide, prn n/v for episodes Pt to be discharged in stable condition. Patient made aware of clinical impression, treatment recommendations and disposition plan, return precautions discussed (including but not limited to new or persistent/worsening symptoms, pain, fevers, or signs of infection, chest pain, respiratory distress, inability to tolerate oral intake, dehydration, syncope, or neurologic changes) . Follow up with PMD referrals given, as recommended, follow up information provided, take medications as instructed for duration of time. continue with supportive care, avoid triggers and precipitants. All questions answered to patient's satisfaction and expressed understanding and comfort with this. At the time of discharge, the patient is alert, clinically improved, tolerating po and verbalizes understanding of instructions, satisfied with the care received and felt comfortable with the plan. Patient does not suffer from an acute life- threatening medical condition at this time and is safe for outpatient follow- up. *DC/Admit/Observation/Transfer Diagnosis at time of Disposition: Vomiting - Discharge Dispostion Disposition: HOME Condition at time of disposition: Improved Decision to Admit order: No - Prescriptions Prescriptions: Ondansetron [Zofran -] 4 mg PO TID PRN #9 tablet PRN Reason: nausea vomiting - Referrals Referrals: [facility] [place] [Provider Group] [facility] [address] [Provider Group] - Patient Instructions Printed Discharge Instructions: [place] Diet, DI for Abdominal Pain-Adult, DI for Vomiting -- Adult Additional Instructions: 1) Please follow-up with your primary care doctor in the next 1-2 days. Please call tomorrow for for any urgent issues. you should take liquids and drink plenty of fluids, avoid triggers such as spicy foods, fatty foods, whole grains for now until you feel better 2) You were given a copy of the tests performed today. Please bring the results with you and review them with your primary care doctor. Your laboratory / imaging results were normal, your lipase (pancreatic enzyme) is only mildly elevated. this can occur with vomiting. 3) If you have any worsening of symptoms or any other concerns please return to the ED immediately. Return if worsening symptoms including fevers, headache, vomiting, visual or hearing disturbances, abdominal pain, chest pain, shortness of breath, syncope, dehydration, inability to take things by mouth/vomiting, altered mental status, or worsening concerning symptoms. 4) Please continue taking your home medications as directed. your medications on discharge include zofran every 8 hours as needed for nausea/vomiting. do not drink alcohol with your medications. - you can also take pepcid twice a day to help settle down your stomach acid. Stay well hydrated and rest adequately. Make an appointment. If you cannot follow-up with your primary care doctor please return to the ED - Post Discharge Activity
[2019-03-20] MEDS ORDERED: ONDANSETRON 4 MG/2 ML VIAL ONE (21:27)
[2019-03-20] MEDS ORDERED: ACETAMINOPHEN INJECTION 100 ML IVPB ONE (21:27)
[2019-03-20 22:09] LABS: BASO % 0.3 % (0-2.0); EOS % 0.1 % (0-4.5); HEMATOCRIT 49.5 % (35.4-49); HEMOGLOBIN 16.4 GM/dL (11.7-16.9); LYMPH % 12.8 % (8-40); MCH 29.8 pg (25.7-33.7); MCHC 33.1 g/dl (32.0-35.9); MEAN PLT VOLUME 8.3 fl (7.5-11.1); MONO % 8.2 % (3.8-10.2); NEUT % 78.6 % (42.8-82.8); PLATELET COUNT 343 K/MM3 (134-434); RDW 13.4 % (11.9-15.9); WHITE BLOOD COUNT 7.7 K/mm3 (4.0-10.0)
[2019-03-20 22:23] LABS: ALBUMIN 4.3 g/dl (3.4-5.0); BILIRUBIN,TOTAL 0.9 mg/dL (0.2-1); BLOOD UREA NITROGEN 11.6 mg/dL (7-18); CALCIUM 9.5 mg/dL (8.5-10.1); CREATININE 1.2 mg/dL (0.55-1.3); POTASSIUM 4.1 mmol/L (3.5-5.1); TOT PROT 7.5 g/dl (6.4-8.2)
[2019-03-20] MEDS ORDERED: METOCLOPRAMIDE HCL INJECTION 10 MG/2 ML VIAL IVPUSH ONE (23:31)
[2019-03-20] MEDS ORDERED: MAG HYDROX/AL HYDROX/SIMETH 30 ML UNIT-DOSE CUP PO ONE (23:31)
[2019-03-20] MEDS ORDERED: SODIUM CHLORIDE 0.9% 500 ML INFUS.BAG IV ONE (23:34)
[2019-03-20] MEDS ORDERED: MAG HYDROX/AL HYDROX/SIMETH 30 ML UNIT-DOSE CUP ONE (23:44)
[2019-03-20] MEDS ORDERED: METOCLOPRAMIDE HCL INJECTION 10 MG/2 ML VIAL ONE (23:44)
== END 2019-03-21 01:46 | disposition home or self-care (01) ==
LOC: JER 20:14
PROC: 3E0337Z Introduction of Electrolytic and Water Balance Substance into Peripheral Vein, Percutaneous Approach (ICD-10-PCS; principal; 2019-03-20)
PROC: 3E033GC Introduction of Other Therapeutic Substance into Peripheral Vein, Percutaneous Approach (ICD-10-PCS; 2019-03-20)
PROC: 3E033GC Introduction of Other Therapeutic Substance into Peripheral Vein, Percutaneous Approach (ICD-10-PCS; 2019-03-20)
PROC: 3E033GC Introduction of Other Therapeutic Substance into Peripheral Vein, Percutaneous Approach (ICD-10-PCS; 2019-03-20)
PROC: 3E033GC Introduction of Other Therapeutic Substance into Peripheral Vein, Percutaneous Approach (ICD-10-PCS; 2019-03-20)
PROC: 3E033NZ Introduction of Analgesics, Hypnotics, Sedatives into Peripheral Vein, Percutaneous Approach (ICD-10-PCS; 2019-03-20)
DX: R11.2 Nausea with vomiting, unspecified (principal)
CPT/HCPCS: 36415; 80053; 83690; 85025; 96361; 96365; 96375; 99282-25; J0131; J7030

== ENCOUNTER 2020-08-12 12:33 | Emergency (ER) | payer OTHER ==
[2020-08-12 12:44] VITALS: BMI 24.6
[2020-08-12 14:09] LABS: BASO % 0.8 % (0-2.0); EOS % 1.6 % (0-4.5); HEMATOCRIT 47.8 % (35.4-49); LYMPH % 12.1 % (8-40); MCHC 33.4 g/dl (32.0-35.9); MEAN CELL VOLUME 89.8 fl (80-96); MEAN PLT VOLUME 7.9 fl (7.5-11.1); MONO % 9.5 % (3.8-10.2); PLATELET COUNT 337 K/MM3 (134-434); RBC 5.32 M/mm3 (4.00-5.60); RDW 13.3 % (11.9-15.9); WHITE BLOOD COUNT 11.5 K/mm3 (4.0-10.0)
[2020-08-12 14:15] LABS: CALCIUM 9.3 mg/dL (8.5-10.1)
[2020-08-12 14:16] LABS: ALBUMIN 4.1 g/dl (3.4-5.0)
[2020-08-12 14:19] LABS: CREATININE 1.2 mg/dL (0.55-1.3)
[2020-08-12 14:20] LABS: BILIRUBIN,TOTAL 0.8 mg/dL (0.2-1); TOT PROT 7.2 g/dl (6.4-8.2)
[2020-08-12 14:22] LABS: BLOOD UREA NITROGEN 13.8 mg/dL (7-18)
[2020-08-12 16:19] VITALS: BP 118/73; PULSE 67; TEMP 98.1
== END 2020-08-12 15:53 | disposition home or self-care (01) ==
LOC: JER 12:33
DX: R10.84 Generalized abdominal pain (principal)
CPT/HCPCS: 36415; 80053; 85025; 87491; 87591; 99284-25; C9803; U0003

== ENCOUNTER 2021-01-21 11:41 | Emergency (ER) | payer OTHER ==
[2021-01-21 11:57] VITALS: BP 151/73; PULSE 73; TEMP 98.1; BMI 22.5
== END 2021-01-21 13:15 | disposition home or self-care (01) ==
LOC: JER 11:41
DX: K30 Functional dyspepsia (principal)
CPT/HCPCS: 99281-25

== ENCOUNTER 2021-04-26 21:11 | Emergency (ER) | payer OTHER ==
[2021-04-26 21:28] VITALS: BP 107/80; PULSE 74; TEMP 98.5; BMI 22.4
== END 2021-04-26 22:36 | disposition home or self-care (01) ==
LOC: JERFT 21:11
DX: Z20.2 Contact with and (suspected) exposure to infections with a predominantly sexual mode of transmission (principal)
CPT/HCPCS: 36415; 87491; 87591; 99283-25

== ENCOUNTER 2022-11-18 16:13 | Emergency (ER) | payer OTHER ==
[2022-11-18 16:24] VITALS: BP 123/90; PULSE 75; RESP 18; TEMP 98.3; BMI 23.1
[2022-11-18] MEDS ORDERED: SODIUM CHLORIDE 0.9% 500 ML INFUS.BAG IV ONE (16:35)
[2022-11-18] MEDS ORDERED: ONDANSETRON 4 MG/2 ML VIAL IVPUSH ONE (16:35)
[2022-11-18] MEDS ORDERED: ONDANSETRON 4 MG/2 ML VIAL ONE (18:09)
[2022-11-18] MEDS ORDERED: ACETAMINOPHEN 1000 MG/100 ML BAG IVPB ONE (18:35)
[2022-11-18 18:38] LABS: BASO % 0.7 % (0-2.0); EOS % 0.2 % (0-4.5); LYMPH % 17.9 % (8-40); MCH 30.3 pg (25.7-33.7); MCHC 34.7 g/dl (32.0-35.9); MEAN CELL VOLUME 87.3 fl (80-96); MEAN PLT VOLUME 8.2 fl (7.5-11.1); MONO % 8.9 % (3.8-10.2); NEUT % 72.3 % (42.8-82.8); PLATELET COUNT 328 10^3/uL (134-434); RBC 5.61 M/mm3 (4.00-5.60); RDW 13.3 % (11.9-15.9); WHITE BLOOD COUNT 8.4 K/mm3 (4.0-10.0)
[2022-11-18] MEDS ORDERED: ACETAMINOPHEN INJECTION 100 ML IVPB ONE (18:43)
[2022-11-18 18:59] LABS: CALCIUM 9.5 mg/dL (8.5-10.1)
[2022-11-18 19:00] LABS: ALBUMIN 4.4 g/dl (3.4-5.0)
[2022-11-18 19:03] LABS: CREATININE 1.2 mg/dL (0.55-1.3)
[2022-11-18 19:04] LABS: BILIRUBIN,TOTAL 1.1 mg/dL (0.2-1)
== END 2022-11-18 21:12 | disposition home or self-care (01) ==
LOC: JER 16:13
PROC: 3E033NZ Introduction of Analgesics, Hypnotics, Sedatives into Peripheral Vein, Percutaneous Approach (ICD-10-PCS; principal; 2022-11-18)
PROC: 3E033GC Introduction of Other Therapeutic Substance into Peripheral Vein, Percutaneous Approach (ICD-10-PCS; 2022-11-18)
DX: R11.2 Nausea with vomiting, unspecified (principal)
CPT/HCPCS: 36415; 74018-TC-FY; 80053; 83690; 85025; 99284-25